=== PATIENT | male | born 1975 | race Caucasian/White ===

== ENCOUNTER 2021-02-27 08:34 | Outpatient (REF) | payer OTHER, SELFPAY ==
[2021-02-27 11:16] LABS: Alanine Aminotransferase 51 U/L (0-40); Albumin Level 4.3 g/dL (3.5-5.0); Alkaline Phosphatase 78 U/L (39-117); Anion Gap 12 (12-20); Aspartate Amino Transferase 23 U/L (5-37); Bilirubin Total 0.7 mg/dL (0.0-1.0); Blood Urea Nitrogen 12 mg/dL (9-16); Calcium 9.5 mg/dL (8.4-10.2); Carbon Dioxide 25 mmol/L (22-29); Chloride 106 mmol/L (96-108); Cholesterol 251 mg/dL; Estimated Glomerular Filt Rate > 60; Glucose Fasting 101 mg/dL (60-99); HDL Cholesterol 54 mg/dL; LDL Cholesterol Calculated 178 mg/dl; Potassium 4.2 mmol/L (3.3-5.1); Sodium 139 mmol/L (135-145); Total Protein 7.6 g/dL (6.5-8.0); Triglycerides 97 mg/dL
[2021-02-27 11:27] LABS: TSH reflex Free T4 0.89 uIU/mL (0.32-4.0)
== END 2021-02-27 08:35 | disposition home or self-care (01) ==
LOC: HO.WFDLDS 08:34
PROVIDERS: Visit Provider Family Medicine
DX: Z00.00 Encounter for general adult medical examination without abnormal findings (principal)
CPT/HCPCS: 36415; 80053; 80061; 84443

== ENCOUNTER 2021-04-28 14:19 | Outpatient (REF) | payer OTHER, SELFPAY ==
--- NOTE | ~2021-04-28 | US_ITS ---
EXAMINATION: US VENOUS WITH DOPPLER UPPER EXTREMITY, RIGHT CLINICAL INFORMATION: Pain COMPARISON: None TECHNIQUE: Ultrasound of the upper extremity is performed using compression sonography and color and pulse Doppler flow with assessment of augmentation of flow. There is also imaging and Doppler assessment of the jugular and subclavian veins. Spectral analysis with color-flow imaging is performed. FINDINGS: The right internal jugular, subclavian, axillary, basilic, brachial and cephalic veins are patent. The radial and ulnar veins in the forearm are patent. Just superior to the antecubital fossa is a 0.6 x 0.3 x 0.7 cm hypoechoic likely complex fluid collection. Ultrasound appearance is nonspecific. Possible hematoma or a small abscess should be considered. US/US venous duplex UE RT IMPRESSION: No DVT demonstrated in the right upper extremity. Small nonspecific complex fluid collection just superior to the cubital fossa measuring 6 x 3 x 7 mm.
== END 2021-04-28 14:20 | disposition home or self-care (01) ==
LOC: HO.US 14:19
PROVIDERS: PCP Family Medicine; Visit Provider Family Medicine
DX: R60.0 Localized edema (principal); M79.89 Other specified soft tissue disorders; I80.8 Phlebitis and thrombophlebitis of other sites
CPT/HCPCS: 93971

== ENCOUNTER 2021-10-14 08:59 | Outpatient (REF) | payer OTHER, SELFPAY ==
[2021-10-14 12:26] LABS: Alanine Aminotransferase 63 U/L (0-40); Alkaline Phosphatase 66 U/L (39-117); Anion Gap 11 (12-20); Aspartate Amino Transferase 28 U/L (5-37); Bilirubin Total 0.8 mg/dL (0.0-1.0); Blood Urea Nitrogen 10 mg/dL (9-16); Calcium 9.3 mg/dL (8.4-10.2); Carbon Dioxide 23 mmol/L (22-29); Chloride 108 mmol/L (96-108); Cholesterol 268 mg/dL; Estimated Glomerular Filt Rate > 60; Glucose Fasting 108 mg/dL (60-99); HDL Cholesterol 57 mg/dL; LDL Cholesterol Calculated 186 mg/dl; Potassium 4.1 mmol/L (3.3-5.1); Sodium 138 mmol/L (135-145); Triglycerides 129 mg/dL
[2021-10-14 12:41] LABS: Prostate Specific Antigen Scr 1.93 ng/mL (<0.05-4.0)
[2021-10-15 04:36] LABS: ~Hepatitis B Surface Antibody NONREACTIVE (Nonreactive)
[2021-10-15 05:04] LABS: HBsAGNum1 0.18 S/CO (0.00-0.99); Hepatitis B Core Antibody Nonreactive (Nonreactive); Hepatitis B Surface Antigen Negative (Negative); ~HepC Num1 0.09 S/CO (0.00-0.79); ~Hepatitis C Antibody Nonreactive (Nonreactive)
== END 2021-10-14 09:00 | disposition home or self-care (01) ==
LOC: HO.WFDLDS 08:59
PROVIDERS: Visit Provider Family Medicine
DX: R73.01 Impaired fasting glucose (principal); R74.01 Elevation of levels of liver transaminase levels; E78.00 Pure hypercholesterolemia, unspecified; Z11.3 Encounter for screening for infections with a predominantly sexual mode of transmission; Z12.5 Encounter for screening for malignant neoplasm of prostate
CPT/HCPCS: 36415; 80053; 80061; 84153; 86704; 86706; 86803; 87340

== ENCOUNTER 2021-11-27 08:45 | Outpatient (REF) | payer OTHER, SELFPAY ==
--- NOTE | ~2021-11-27 | US_ITS ---
EXAMINATION: US ABDOMEN LIMITED WITH LIVER ELASTOGRAPHY CLINICAL INFORMATION: Elevated LFTs. COMPARISON: None. TECHNIQUE: Real-time imaging of the abdominal viscera. Noninvasive ultrasound liver fibrosis assessment is performed using Dionisio ElastPQ point quantification shear wave elastography (2D-SWE) with a C5-2 MHz transducer. Multiple elastography samples are obtained. FINDINGS: PANCREAS: The visualized pancreatic head and body are normal in appearance. The remainder of the pancreas is obscured from visualization by the overlying bowel gas. LIVER: The liver demonstrates normal size, contour and increased echogenicity. No focal lesion or intrahepatic biliary duct dilatation. The right lobe measures 15.0 cm in length. The left lobe measures 11.9 cm in length. Portal flow is hepatopedal. Shear wave liver elastography median stiffness is 1.5 m/s (reference: normal median stiffness is 1.3 m/s or less). IQR/median stiffness to assess sampling precision is 0.11 (reference: good quality data set is IQR/median stiffness of 0.15 or less). GALLBLADDER: Normal. The gallbladder is physiologically distended without evidence of stones, sludge, polyps, wall thickening or pericholecystic fluid. COMMON BILE DUCT: Normal in caliber measuring 0.3 cm in diameter. RIGHT KIDNEY: Normal. No hydronephrosis. No renal calculi or focal parenchymal lesions. The kidney measures 12.0 cm in maximum dimension. FREE FLUID: None. US/US abdomen novak w elastography IMPRESSION: 1. Mild hepatic steatosis without focal lesion. 2. Liver elastography: Median liver stiffness 1.5 suggestive of cACLD ruled out. REFERENCE: Society of Radiologists in Ultrasound Liver Stiffness Thresholds (2020): LIVER STIFFNESS THRESHOLDS: *Liver Stiffness equal or less than 1.3 m/s: High probability of being normal. *Liver Stiffness less than 1.7 m/s: In the absence of other known clinical signs, rules out compensated advanced chronic liver disease. *Liver Stiffness 1.7-2.1 m/s: Suggestive of compensated advanced chronic liver disease but need further test for confirmation. *Liver Stiffness over 2.1 m/s: Rules in compensated advanced chronic liver disease. *Liver Stiffness over 2.4 m/s: Suggestive of clinically significant portal hypertension. QUALITY OF DATA SET: *IQR/Median value equal or less than 0.15 implies a quality data set. *IQR/Median value over 0.15 implies a poor quality data set. SIGNIFICANT CHANGE FROM PRIOR EXAM: Significant change if liver stiffness measurement is 10% or greater from prior exam. OTHER CONSIDERATIONS: The stage of liver fibrosis may be overestimated in the setting of acute hepatitis, liver inflammation, elevated liver function tests, hepatic vascular congestion, obstructive cholestasis, non-fasting state, and infiltrative diseases such as amyloidosis and lymphoma. In some patients with NAFLD, the liver stiffness thresholds for compensated advanced chronic liver disease may be lower. In causes other than viral hepatitis and NAFLD, liver stiffness thresholds are not well established.
== END 2021-11-27 08:46 | disposition home or self-care (01) ==
LOC: HO.US 08:45
PROVIDERS: PCP Family Medicine; Visit Provider Family Medicine
DX: R74.01 Elevation of levels of liver transaminase levels (principal)
CPT/HCPCS: 76705; 76981

== ENCOUNTER 2021-12-04 08:58 | Outpatient (REF) | payer OTHER, SELFPAY ==
[2021-12-04 10:54] LABS: Estimated Average Glucose 105 mg/dL; Hemoglobin A1c % 5.3 %
== END 2021-12-04 08:59 | disposition home or self-care (01) ==
LOC: HO.WFDLDS 08:58
PROVIDERS: Visit Provider Family Medicine
DX: R73.01 Impaired fasting glucose (principal)
CPT/HCPCS: 36415; 83036

== ENCOUNTER 2023-01-04 08:25 | Outpatient (RCR) | payer OTHER, SELFPAY ==
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
== END 2023-12-02 08:34 | disposition home or self-care (01) ==
LOC: HO.PTWFD 08:25
PROVIDERS: Visit Provider Family Medicine
DX: M25.512 Pain in left shoulder (principal)
CPT/HCPCS: 97110; 97140; 97161; 97535

== ENCOUNTER 2023-04-14 08:56 | Outpatient (REF) | payer OTHER, SELFPAY ==
[2023-04-14 11:11] LABS: MANUAL DIFF FLAG NO
[2023-04-14 11:23] LABS: Basophils Percent Auto 0.8 % (0-2); Eosinophils Absolute Auto 0.2 X10*3/uL (0.0-0.4); Eosinophils Percent Auto 3.4 % (0-4); Hematocrit 48.4 % (42.0-52.0); Imm Gran Abs Auto 0.01 X10*3/uL (0.00-0.03); Imm Gran Pct Auto 0.2 % (0.0-0.4); Lymphocytes Absolute Auto 1.5 X10*3/uL (1.2-4.9); Lymphocytes Percent Auto 30.6 % (20-40); Mean Corpuscular HGB Conc 33.1 g/dl (31.0-36.0); Mean Corpuscular Hemoglobin 30.6 pg (27.0-33.0); Mean Corpuscular Volume 92.5 fL (80.0-98.0); Mean Platelet Volume 10.3 fL (9.4-12.4); Monocytes Absolute Auto 0.6 X10*3/uL (0.1-1.2); Monocytes Percent Auto 11.2 % (2-11); Neutrophils Absolute Auto 2.7 x10*3/uL (2.0-8.3); Neutrophils Percent Auto 53.8 % (45-73); Platelet Count 305 X10*3/uL (160-400); Red Blood Count 5.23 X10*6/uL (4.60-5.80); Red Cell Distribution Width 12.3 % (11.0-16.0); White Blood Count 4.9 X10*3/uL (4.8-10.8)
[2023-04-14 11:23] LABS: Appearance Urine Clear; Color Urine Yellow; Glucose Urine UA Negative (Negative); Leukocyte Esterase Urine Negative (Negative); Nitrite Urine Negative (Negative); Urine Blood Negative (Negative); Urine Ketones Negative (Negative); Urine Protein Negative (Neg-Trace)
[2023-04-14 12:03] LABS: Alanine Aminotransferase 44 U/L (0-40); Albumin Level 4.3 g/dL (3.5-5.0); Alkaline Phosphatase 84 U/L (39-117); Anion Gap 12 (12-20); Aspartate Amino Transferase 22 U/L (5-37); Bilirubin Total 0.7 mg/dL (0.0-1.0); Blood Urea Nitrogen 14 mg/dL (9-16); Calcium 9.6 mg/dL (8.4-10.2); Carbon Dioxide 23 mmol/L (22-29); Chloride 109 mmol/L (96-108); Cholesterol 224 mg/dL; Estimated Glomerular Filt Rate > 60; Glucose Fasting 100 mg/dL (60-99); HDL Cholesterol 58 mg/dL; LDL Cholesterol Calculated 146 mg/dl; Potassium 4.3 mmol/L (3.3-5.1); Prostate Specific Antigen Scr 2.86 ng/mL (<0.05-4.0); Sodium 140 mmol/L (135-145); TSH reflex Free T4 0.88 uIU/mL (0.32-4.0); Total Protein 7.2 g/dL (6.5-8.0); Triglycerides 101 mg/dL
[2023-04-14 12:06] LABS: Creatinine Urine 139.97 mg/dL
== END 2023-04-14 08:57 | disposition home or self-care (01) ==
LOC: HO.WFDLDS 08:56
PROVIDERS: Visit Provider Family Medicine
DX: Z00.00 Encounter for general adult medical examination without abnormal findings (principal); I10 Essential (primary) hypertension; Z12.5 Encounter for screening for malignant neoplasm of prostate
CPT/HCPCS: 36415; 80053; 80061; 81003; 82043; 84153; 84443; 85025

== ENCOUNTER 2023-04-23 08:41 | Outpatient (REF) | payer OTHER, SELFPAY ==
[2023-04-23 14:57] LABS: Adenovirus F 40/41 Not Detected (Not Detect.); Astrovirus Not Detected (Not Detect.); Campylobacter Not Detected (Not Detect.); Cryptosporidium Not Detected (Not Detect.); Cyclospora cayetanensis Not Detected (Not Detect.); E. coli EAEC Not Detected (Not Detect.); E. coli EPEC Not Detected (Not Detect.); E. coli ETEC Not Detected (Not Detect.); E. coli STEC Not Detected (Not Detect.); Entamoeba histolytica Not Detected (Not Detect.); Giardia lamblia Not Detected (Not Detect.); Norovirus GI/GII Not Detected (Not Detect.); Plesiomonas shigelloides Not Detected (Not Detect.); Rotavirus A Not Detected (Not Detect.); Salmonella Not Detected (Not Detect.); Sapovirus Not Detected (Not Detect.); Shigella sp./EIEC Not Detected (Not Detect.); Vibrio Not Detected (Not Detect.); Vibrio Cholerae Not Detected (Not Detect.); Yersinia enterocolitica Not Detected (Not Detect.)
== END 2023-04-23 08:42 | disposition home or self-care (01) ==
LOC: HO.WFDLNP 08:41
PROVIDERS: Visit Provider Family Medicine
DX: R19.7 Diarrhea, unspecified (principal); R63.4 Abnormal weight loss
CPT/HCPCS: 87177; 87209; 87507

== ENCOUNTER 2023-06-11 13:58 | Outpatient (AMB) | payer OTHER, SELFPAY ==
[2023-06-11 14:33] VITALS: BP 122/74; PULSE 68; O2SAT 98; BMI 26.4
--- NOTE | 2023-06-11 14:33 | A.OFFPC_ITS ---
Vital Signs 06/11/23 14:33 Height 5 ft 9 in Weight 178 lb 8 oz BMI 26.4 BP 122/74 Blood Pressure Location Lt brachial Position Sitting Pulse 68 Pulse Source Pulse Oximeter Pulse Oximetry (%) 98 Intake Visit Reasons: CPE with f/u labs and health maintenance Intake Note: pt is here for cpe, with labs Central Supply Nurse Required: No Accompanied by: Self / Same As Patient Allergies seasonal Allergy (Mild, Uncoded 06/11/23 14:35) watery eyes, cough, stuffy, post-nasal drip Tobacco use date assessed: 12/28/22 Dental Screening Dental Screen Date: 06/11/23 Did you have a dental visit in the last 12 months?: Yes Did you have a dental problem in the last 6 months where you did not have access to dental care?: No Was dental information given to patient?: Patient has dentist HPI CPE with f/u labs and health maintenance HPI Details 48 y/o male presents for a CPE with f/u labs and health maintenance. Labs were drawn 04/14/23. Reviewed labs with pt. Elevated fasting glucose. Last A1c 12/04/21 was 5.3%. Elevated ALT of 44. Triglycerides 101. TC 224. LDL 146. HDL 58. PSA 2.86 ng/mL. Pt reports a strong family hx of prostate cancer. He reports he had improved his diet, cutting back on the sugars and soda. 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 1. Little interest or pleasure in doing things: not at all 2. Feeling down, depressed, or hopeless: not at all 3. Trouble falling or staying asleep, or sleeping too much: not at all 4. Feeling tired or having little energy: not at all 5. Poor appetite or overeating: not at all 6. Feeling bad about yourself - or that you are a failure or have let yourself or your family down: not at all 7. Trouble concentrating on things, such as reading the newspaper or watching television: not at all 8. Moving or speaking so slowly that other people could have noticed. Or the opposite - being so fidgety or restless that you have been moving around a lot more than usual: not at all 9. Thoughts that you would be better off or of hurting yourself in some way: not at all Total score: 0 Depression Screening Interpretation: Negative 36770 - PHQ-9 Billing: Yes Source: Developed by Drs. Hakeem Lerma, Juanita Clifford, Bill Foreman and colleagues, with an educational [place] from [employer]. Thrive Questionnaire Date Thrive assessed: 04/28/21 AUDIT C Alcohol Use Questionnaire (AUDIT-C) 1. How often do you have a drink containing alcohol?: 2-3 times a week 2. How many drinks containing alcohol do you have on a typical day when you are drinking?: 1 or 2 3. How often do you have six or more drinks on one occasion?: Never Total Score: 3 PAU-7 AMB Questionnaire PAU-7 Date PAU - 7 assessed: 06/11/23 Feeling nervous, anxious, or on edge: 0 = Not at all Not being able to stop or control worryin = Not at all Worrying too much about different things: 0 = Not at all Trouble relaxin = Not at all Being so restless that it is hard to sit still: 0 = Not at all Becoming easily annoyed or irritable: 0 = Not at all Feeling afraid as if something awful might happen: 0 = Not at all Total PAU-7 score (0-4 normal; 5-9 mild; 10-14 moderate; 15-21 severe): 0 Source: Developed by Drs. Hakeem Lerma, Juanita Clifford, Bill Foreman and colleagues, with an educational [place] from [employer]. PAU-7 Assessment Billing PAU-7 Assessment Tool: PAU-7 Assessment 41915 Review of Systems Const Denies chills, Denies fatigue, Denies fever(s), Denies headache(s) and Denies weakness Eyes Denies change in vision ENT Denies dizziness, Denies headache(s), Denies hearing loss, Denies nasal congestion, Denies sinus pain, Denies sinus pressure and Denies sore throat Card Denies chest pain, Denies lightheadedness, Denies dyspnea and Denies other (palpitations) Resp Denies cough, Denies dyspnea and Denies wheezing GI Denies abdominal pain, Denies melena, Denies hematochezia, Denies change in bowel habits, Denies dyspepsia and Denies nausea Denies hematuria and Denies dysuria Musc Denies abnormal gait, Reports back pain, Denies myalgias, Denies arthralgias, Denies numbness and Denies tingling Skin/Breast Denies rash, Denies unusual bruising and Denies wounds Neuro Denies abnormal gait, Denies dizziness, Denies headache(s), Denies memory loss, Denies numbness, Denies Sensory deficit (Neuro), Denies tingling and Denies weakness Psych Denies anxiety, Denies depression and Denies memory loss Endo Denies cold intolerance, Denies fatigue, Denies heat intolerance, Denies polydipsia and Denies polyuria Mark/Lymph Denies easy bleeding and Denies easy bruising Aller/Immun Denies wheezing Physical exam (Primary Care) Vital Signs: Last Vital Signs Pulse 68 06/11/23 14:33 BP 122/74 06/11/23 14:33 Pulse Ox 98 06/11/23 14:33 BMI result Body Mass Index 26.4 Tobacco/Smoking Status: Tobacco use Status Tobacco use date assessed 12/28/22 06/11/23 14:36 Patient Tobacco Use Status Never used Tobacco 06/11/23 14:36 e-Cigarette/Vaping Use Never Used 06/11/23 14:36 PHQ-9: PHQ-9 Score PHQ-9: Total score 0 06/11/23 15:12 Depression Screening Interpretation: Negative Thrive Assessment: Date of Thrive Assessment Date Thrive assessed 04/28/21 06/11/23 14:36 Const General: no acute distress, well developed, alert and awake Nutritional Appearance: well nourished Orientation/consciousness: patient oriented x3 HENMT Head: Yes normocephalic and Yes atraumatic Ears: hearing grossly normal bilaterally and TM's normal bilaterally General nose exam: Normal external nose present and Normal nares present Mouth: Normal oral and palatal mucosa present and moist mucous membranes Teeth and gingiva: dentition normal Throat: Yes posterior oropharynx normal Eyes General: appearance normal, both eyes and all related structures Pupils: Equal, round and reactive pupils present and Pupil accommodation reflex normal EOM: EOMs intact bilaterally Neck Neck: Yes normal visual inspection, Yes no lymphadenopathy and Yes trachea midline Thyroid: Thyroid normal Carotids: no bruits Lymphatic: no lymphadenopathy noted Chest Chest palpation & inspection: normal inspection of the chest Resp Effort & Inspection: normal respiratory effort Auscultation: clear to auscultation bilaterally Cardio Rate: regular rate Rhythm: regular rhythm Heart sounds: S1 normal heart sound present, S2 normal heart sound present, no gallops, no murmurs and no rubs Bruits: no abdominal aortic bruits and no carotid bruits GI Palpation (GI): No Abdominal aortic bruit present, Soft to palpation, nontender, No hepatosplenomegaly present and No Rebound tenderness present Auscultation: normal bowel sounds Rectal Exam - Male: Yes prostate abnormal (Enlarged but homogeneously smooth and normal consistency) General: Yes no CVA tenderness Back/Spine/Pelvis Back: no CVA tenderness Cervical Spine: cervical ROM normal and No Cervical spine tenderness Thoracic/Lumbar Spine: thoraco-lumbar ROM normal, No pain with thoraco-lumbar ROM, No thoracic spinal tenderness and No lumbar spinal tenderness Skin Lesions: no lesions Rashes: no rashes Trauma: no lacerations or abrasions Wounds: no wounds Nails: normal Neuro General: patient oriented x3 Cranial nerves: Yes Equal, round and reactive pupils present Cognition (Neuro): normal cognition Gait exam (Neuro): Normal gait present Motor exam (neuro): 5/5 motor strength present throughout Sensory Exam: No Sensory deficit (Neuro) Deep tendon reflexes (DTR's): Right patellar reflex intensity grade: 2+ and Left patellar reflex intensity grade: 2+ Extrem General: Yes normal to inspection and No edema Psych Appearance: grossly normal Affect: normal affect Attitude: cooperative Thought process: Normal thought process present Assessment and Plan Assessment & Plan (1) Annual physical exam: Code(s): Z00.00 - Encounter for general adult medical examination without abnormal findings Plan: 48-year-old male presents for complete physical exam Encouraged healthy diet with active lifestyle and plenty of exercise (2) Elevated ALT measurement: Code(s): R74.01 - Elevation of levels of liver transaminase levels Plan: Improving with dietary changes and weight changes (3) Hypercholesterolemia: Code(s): E78.00 - Pure hypercholesterolemia, unspecified Plan: LDL cholesterol is improving. Encouraged ongoing lifestyle changes (4) Elevated fasting blood sugar: Code(s): R73.01 - Impaired fasting glucose Plan: Very mildly elevated fasting blood sugars and which follow-up on this at a subsequent visit (5) Back pain: Code(s): M54.9 - Dorsalgia, unspecified Plan: Midback pain. Left thoracic paraspinal muscles appear strained Referred for physical therapy (6) Screening for colon cancer: Code(s): Z12.11 - Encounter for screening for malignant neoplasm of colon Plan: Referred to Gastroenterology (7) Screening for prostate cancer: Code(s): Z12.5 - Encounter for screening for malignant neoplasm of prostate Plan: PSA still within normal limits but climbed significantly from prior check. Patient has a strong family history of prostate cancer. PASQUALE today showed enlarged prostate but was normal consistency. Also, he does have some symptoms as he has some frequent urination/hesitancy. Starting Flomax and referred him to Urology (8) Weight loss: Code(s): R63.4 - Abnormal weight loss Plan: Weight has been fluctuating Will follow (9) Family history of prostate cancer: Code(s): Z80.42 - Family history of malignant neoplasm of prostate Plan: As above, referred to Urology (10) Enlarged prostate: Code(s): N40.0 - Benign prostatic hyperplasia without lower urinary tract symptoms Plan: As above Orders: Orders PT Evaluation and Treatment Today M54.9 - Dorsalgia, unspecified Referrals Urology Referral Z12.5 - Encounter for screening for malignant neoplasm of prostate Gastroenterology Referral Z12.11 - Encounter for screening for malignant neoplasm of colon Coding Level of Care Code Est Pt Level 3 (94719) Est Pt Prev Care 40-64y(77805) Diagnoses Annual physical exam Z00.00 Elevated ALT measurement R74.01 Hypercholesterolemia E78.00 Elevated fasting blood sugar R73.01 Back pain M54.9 Screening for colon cancer Z12.11 Screening for prostate cancer Z12.5 Weight loss R63.4 Family history of prostate cancer Z80.42 Enlarged prostate N40.0 Additional Codes PAU-7 Assessment Billing - PAU-7 Assessment Tool: PAU-7 Assessment 16977 ([id number])
== END 2023-06-11 15:43 | disposition home or self-care (01) ==
PROVIDERS: PCP Family Medicine; Visit Provider Family Medicine
DX: Z00.00 Encounter for general adult medical examination without abnormal findings (principal); R74.01 Elevation of levels of liver transaminase levels; E78.00 Pure hypercholesterolemia, unspecified; Z80.42 Family history of malignant neoplasm of prostate; R73.01 Impaired fasting glucose; M54.9 Dorsalgia, unspecified; R63.4 Abnormal weight loss; N40.0 Benign prostatic hyperplasia without lower urinary tract symptoms
CPT/HCPCS: 99396

== ENCOUNTER 2023-07-22 15:20 | Outpatient (AMB) | payer OTHER, SELFPAY ==
--- NOTE | 2023-07-22 15:19 | A.OFFVIS_ITS ---
Intake Intake Visit Reasons: screening for malignant neoplasm of prostate Intake Note: New Patient presents for initial visit Enlarged Prostate/Family Hx Prostate Cancer Urology Medications: Tamsulosin Blood Thinner: none (Last PSA 04/30 - 2.86) PVR: 0ml Oracle Adf Developer Required: No Accompanied by: Self / Same As Patient Allergies seasonal Allergy (Mild, Uncoded 07/25/23 13:09) watery eyes, cough, stuffy, post-nasal drip Medication List - Last Reconciled 07/25/23 by RAFAEL HamiltonP- fluticasone propionate 50 mcg/actuation 1 spray intranasal DAILY loratadine (Claritin) 10 mg PO DAILY tamsulosin (Flomax) 0.4 mg PO BEDTIME 30 days HPI HPI Comments History of Present Illness Details Bello is a very pleasant 48-year-old male patient of Dr. Anne. He presents to the office today as a new patient for elevated PSA. In discussion with the patient today reports to be doing and feeling well. He reports having a longstanding history of prostate cancer as well as BPH in his family. He reports his paternal grandfather and one of his cousins has had prostate cancer. He reports his father has since however his mother has to ld him his dad had issues with enlarged prostate. When asked he does report ongoing episodes of nocturia and urinary frequency. However, he denies denies incontinence, hematuria, dysuria, foul smelling urine, changes to urinary stream, flank pain, fever, and or chills. He reports PCP to have started Flomax. He reports having taking it for approximately 1 week however did not notice any true benefit thus has stopped. Discussed and educated on the importance of taking medications as prescribed. Discussed allowing time for medication to work verses trial of other bladder/prostate medication. In office urinalysis results reviewed with the patient today. PVR 0 mL. In review of patient's chart PSAs are as follows: 10/28--1.9 04/30--2.9 Discussed at length potential causes for elevated PSA. Discussed redraw of PSA with no sex the night before, no caffeine morning of, and no heavy lifting 1-2 days prior. Discussed obtaining retroperitoneal ultrasound for further assessment evaluation. PAQSUALE offered however reports PCP stated enlarged prostate and no nodules or abnormalities palpated per patient. [facility] Medical History (Reviewed 07/25/23 @ 13:24 by [facility] Allergies Acute bacterial tonsillitis Surgical History History of tonsillectomy [place] teeth removed Family History Father Heart attack Mother Afib Prediabetes Sister Hypertension Social History Housing: House Alcohol intake: current Alcohol intake frequency: a few times a week Alcohol type: beer Patient Tobacco Use Status: Never used Tobacco e-Cigarette/Vaping Use: Never Used Second Hand Smoke Exposure: Yes service: No Current occupational status: employed 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 Current occupational exposures/hazards: Yes Cognitive needs: No Hearing needs: No Vision needs: No Review of Systems Const All systems reviewed & are unremarkable except as noted in HPI and below Reports as per HPI Eyes Reports no additional complaints ENT Reports no additional complaints Card Reports no additional complaints Resp Reports no additional complaints GI Reports no additional complaints Reports as per HPI Musc Reports no additional complaints Neuro Reports no additional complaints Psych Reports no additional complaints Endo Reports no additional complaints Mark/Lymph Reports no additional complaints Aller/Immun Reports no additional complaints Physical Exam Const General: cooperative, healthy appearing, comfortable, no acute distress, well developed, alert and awake Nutritional Appearance: average body habitus Orientation/consciousness: patient oriented x3 Limitations: no limitations HEENT Head: Yes normal to inspection, Yes normocephalic and Yes atraumatic Ears: hearing grossly normal bilaterally Eyes General: appearance normal, both eyes and all related structures Neck Neck: Yes normal visual inspection and Yes trachea midline Chest Chest palpation & inspection: normal inspection of the chest Resp Effort & Inspection: normal respiratory effort and able to speak in complete sentences Cardio Rate: regular rate GI Inspection: Yes normal to inspection General: Yes no CVA tenderness Back/Spine/Pelvis Back: no CVA tenderness Skin General skin exam: no rashes or lesions noted Neuro General: patient oriented x3 Extrem General: Yes normal to inspection Psych Appearance: grossly normal and well kempt Mental Status: mental status grossly normal Speech and movement: Normal speech and movement present and Clear speech present Affect: normal affect Attitude: cooperative Thought process: Normal thought process present Thought content: Normal thought content present Insight: Good insight present (Psych) Judgement: Good judgement present (Psych) Results AMB Urinalysis, Automated UA Leukoctes 0 Martha/uL Last Edit by [email or web address] on 07/22/23 15:36 UA Nitrite Negative Last Edit by [email or web address] AmberPointkim on 07/22/23 15:36 UA Urobilinogen 0.2 mg/dL Last Edit by [email or web address] AmberPointkim on 07/22/23 15:36 UA Protein 15 mg/dL Last Edit by [email or web address] on 07/22/23 15:36 UA pH 7.0 Last Edit by [email or web address] on 07/22/23 15:36 UA Blood 0 Benito/uL Last Edit by Rated People on 07/22/23 15:36 UA Specific [place] 1.015 Last Edit by [email or web address] on 07/22/23 15:36 UA Ketone Negative Last Edit by [email or web address] on 07/22/23 15:36 UA Bilirubin 0 mg/dL Last Edit by [email or web address] on 07/22/23 15:36 UA Glucose 0 mg/dL Last Edit by [email or web address] on 07/22/23 15:36 Results Reviewed Results Reviewed: Laboratory Last Values Urine pH (Auto) 7.0 07/22/23 15:21 Specific [place] (Auto) 1.015 07/22/23 15:21 Urine Protein (Auto) 15 mg/dL 07/22/23 15:21 Glucose (UA)(Auto) 0 mg/dL 07/22/23 15:21 Urine Ketones (Auto) Negative 07/22/23 15:21 Urine Blood (Auto) 0 Benito/uL 07/22/23 15:21 Urine Nitrite (Auto) Negative 07/22/23 15:21 Urine Bilirubin (Auto) 0 mg/dL 07/22/23 15:21 Urine Urobilinogen (Auto) 0.2 mg/dL 07/22/23 15:21 Leukocyte Esterase (Auto) 0 Martha/uL 07/22/23 15:21 Assessment & Plan Assessment & Plan (1) Enlarged prostate: Code(s): N40.0 - Benign prostatic hyperplasia without lower urinary tract symptoms (2) Family history of prostate cancer: Code(s): Z80.42 - Family history of malignant neoplasm of prostate (3) Elevated PSA: Code(s): R97.20 - Elevated prostate specific antigen [PSA] Plan In office urinalysis results reviewed with the patient today; as noted above. PVR 0 mL. Restart Flomax 0.4 mg as discussed and prescribed. Discussed at length potential causes for elevated PSA Discussed redraw of PSA with no sex the night before, no caffeine morning of, and no heavy lifting 1-2 days prior to lab draw. Will obtain retroperitoneal ultrasound for further assessment evaluation. Discussed possible near future prostate biopsy in the setting of elevated PSA. Discussed, educated, encouraged to continue drinking plenty of water daily. Discussed limiting fluids 3-4 hours prior to bed to assist with decreasing episodes of nocturia Follow-up in 6 weeks with lab and imaging to be completed prior; or sooner with any issues, concerns, and or questions. Orders: Orders AMB Urinalysis Automated 07/22/23 Z13.9 - Encounter for screening, unspecified PSA,Total (Free>4and<10) 07/22/23 N40.0 - Benign prostatic hyperplasia without lower urinary tract symptoms US retroperitoneal comp 07/22/23 N40.0 - Benign prostatic hyperplasia without lower urinary tract symptoms Patient Instructions: The patient had an opportunity to ask questions regarding the treatment plan. All questions were answered. Physical exam, labs, and imaging were discussed and reviewed in detail. As well as risks, benefits, and discussion of treatment choices. No major barriers to understanding were identified. The patient expressed understanding and agreement with the above treatment plan. The patient was made aware they should contact our office by phone for worsening of their current condition, the appearance of new symptoms, or with any questions or concerns. Compliance is encouraged with any medications and follow up testing that is ordered. It is a privilege to be allowed the opportunity to participate in? your urological care.? Again, if you have any questions or concerns If you have any questions or concerns please do not hesitate to contact me. The office is [phone]. This note is constructed using voice recognition software. While every effort has been made to ensure accuracy braker passenger train errors may have been included. Yours sincerely, FABY Hamilton Coding Level of Care Code New Pt Level 3 (17922) Diagnoses Enlarged prostate N40.0 Family history of prostate cancer Z80.42 Elevated PSA R97.20
== END 2023-07-22 15:54 | disposition home or self-care (01) ==
LOC: HO.HUSH 15:20
PROVIDERS: PCP Family Medicine; Referring Provider Family Medicine; Visit Provider Nurse Practitioner Family
DX: N40.0 Benign prostatic hyperplasia without lower urinary tract symptoms (principal); Z80.42 Family history of malignant neoplasm of prostate; R97.20 Elevated prostate specific antigen [PSA]
CPT/HCPCS: 99203

== ENCOUNTER → 2023-07-22 15:20 | Outpatient (BNVA) | payer OTHER, SELFPAY | PROVIDERS: PCP Family Medicine; Referring Provider Family Medicine; Visit Provider Nurse Practitioner Family | DX: R97.20 Elevated prostate specific antigen [PSA] (principal); N40.0 Benign prostatic hyperplasia without lower urinary tract symptoms; Z80.42 Family history of malignant neoplasm of prostate | CPT/HCPCS: 81003 ==

== ENCOUNTER 2023-08-02 07:27 | Outpatient (AMB) | payer OTHER, SELFPAY ==
--- NOTE | 2023-08-02 07:46 | MHC.OFFVIS ---
Intake Vital Signs 08/02/23 07:47 Height 5 ft 9 in Weight 172 lb BMI 25.4 BP 116/73 Blood Pressure Location Lt brachial Position Sitting Pulse 65 Intake Visit Reasons: Clonoscopy screening Intake Note: Patient new consult for Pre Colonoscopy screening. Patient denies any GI issues. Housekeeping Supervisor Required: No Accompanied by: Self / Same As Patient Allergies seasonal Allergy (Mild, Uncoded 07/25/23 13:09) watery eyes, cough, stuffy, post-nasal drip HPI HPI Comments History of Present Illness Details A 48-year-old male family hx CRC- (2 p- cousins < 50 ) referred for index screening colonoscopy He says he does have anxiety he had lost quite a bit of weight he is very nervous he has had a feeling in back/lung-no SOB, cough, heartburn- nausea or vomiting Appetite is ok- Bowels are normal No respiratory or cardiac issues- Seeing urology for enlarged prostate. 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 Current occupational exposures/hazards: Yes Cognitive needs: No Hearing needs: No Vision needs: No Review of Systems Const All systems reviewed & are unremarkable except as noted in HPI and below Reports weight loss ENT Denies odynophagia Card Denies chest pain and Denies dyspnea Resp Denies dyspnea GI Denies abdominal pain, Denies nausea, Denies odynophagia and Denies vomiting Psych Reports anxiety Physical Exam Vital Signs: Last Vital Signs Pulse 65 08/02/23 07:47 BP 116/73 08/02/23 07:47 BMI result Body Mass Index 25.4 Const General: cooperative, healthy appearing, comfortable and no acute distress Orientation/consciousness: patient oriented x3 Limitations: no limitations Eyes Sclerae: sclerae normal Resp Effort & Inspection: normal respiratory effort and able to speak in complete sentences Auscultation: clear to auscultation bilaterally, no rales, no rhonchi and no wheezes Cardio Rate: regular rate Rhythm: regular rhythm Heart sounds: S1 normal heart sound present and S2 normal heart sound present GI Palpation (GI): Soft to palpation and nontender Auscultation: normal bowel sounds Skin General skin exam: no rashes or lesions noted Neuro General: patient oriented x3 Extrem General: Yes full ROM Psych Appearance: grossly normal Mental Status: mental status grossly normal Speech and movement: Normal speech and movement present Affect: normal affect Attitude: cooperative Thought process: Normal thought process present Thought content: Normal thought content present Insight: Good insight present (Psych) Judgement: Good judgement present (Psych) Assessment & Plan Assessment & Plan (1) Screening for colon cancer: Comment: very pleasant- Code(s): Z12.11 - Encounter for screening for malignant neoplasm of colon Plan: Index screening colonoscopy MiraLax Gatorade split prep Discussed procedure,rare risks, need for escorted due to anesthesia (2) Family history of colon cancer: Comment: 2 pat cousins < 50- Code(s): Z80.0 - Family history of malignant neoplasm of digestive organs (3) Weight loss: Comment: C/o chronic-mid back/ worries lung - no SOB- will get CXR- reassure if neg Code(s): R63.4 - Abnormal weight loss Plan: CXR- if neg reassuring Plan Index screening colonoscopy MiraLax Gatorade split prep Orders: Orders XR chest 2V Today R63.4 - Abnormal weight loss Colonoscopy - GI Use Only Today R63.4 - Abnormal weight loss, Z12.11 - Encounter for screening for malignant neoplasm of colon, Z80.0 - Family history of malignant neoplasm of digestive organs Medications: New polyethylene glycol 3350 (Miralax) Take as directed by mouth the day before your procedure. 238 grams PO ONCE 1 day PRN 238 grams 0RF laxative effect bisacodyl (Dulcolax (bisacodyl)) Take 4 tablets by mouth at 12:00pm the day before your procedure. 20 mg (4 x 5 mg) PO ONCE 1 day 4 tabs 0RF colonoscopy prep Z12.11 - Encounter for screening for malignant neoplasm of colon Patient Instructions: Index screening colonoscopy MiraLax Gatorade split prep Coding Level of Care Code New Pt Level 3 (93670) Diagnoses Screening for colon cancer Z12.11 Family history of colon cancer Z80.0 Weight loss R63.4 Time Spent (min) 30
[2023-08-02 07:47] VITALS: BP 116/73; PULSE 65; BMI 25.4
== END 2023-08-02 08:55 | disposition home or self-care (01) ==
PROVIDERS: PCP Family Medicine; Visit Provider Physician Assistant
DX: Z01.818 Encounter for other preprocedural examination (principal); R63.4 Abnormal weight loss; Z80.0 Family history of malignant neoplasm of digestive organs; Z12.11 Encounter for screening for malignant neoplasm of colon
CPT/HCPCS: S0285

== ENCOUNTER → 2023-08-02 07:27 | Outpatient (BNVA) | payer OTHER, SELFPAY | PROVIDERS: PCP Family Medicine; Visit Provider Physician Assistant ==

== ENCOUNTER 2023-09-01 14:57 | Outpatient (REF) | payer OTHER, SELFPAY ==
--- NOTE | ~2023-09-01 | US_ITS ---
EXAMINATION: US RETROPERITONEAL COMPLETE (RENAL) CLINICAL INFORMATION: Benign prostatic hyperplasia without lower urinary tract symptoms. COMPARISON: US abdomen complete with liver elastography 11/27/2021. TECHNIQUE: Real-time imaging of the kidneys and bladder. FINDINGS: RIGHT KIDNEY: 10.5 x 4.6 x 6.5 cm (SAG x AP x TRV). The kidney is normal in size, contour, and echogenicity. Renal cortical thickness is normal. No calculi or focal parenchymal lesions. No hydronephrosis. LEFT KIDNEY: 11.5 x 5.6 x 5.2 cm (SAG x AP x TRV). The kidney is normal in size, contour, and echogenicity. Renal cortical thickness is normal. No renal calculi or hydronephrosis. A benign 2.0 cm Bosniak class I renal cyst is noted in the upper pole which requires no additional imaging or follow up. No solid renal masses are seen. BLADDER: Well distended and normal. Bilateral ureteral jets are demonstrated. Prevoid bladder volume is 132 mL. Postvoid bladder volume is 7.7 mL. ADDITIONAL FINDINGS: The prostate is enlarged at 39 mL. US/US retroperitoneal comp IMPRESSION: Mild benign prostatic hyperplasia with 39 mL prostate.
== END 2023-09-01 14:58 | disposition home or self-care (01) ==
LOC: HO.US 14:57
PROVIDERS: PCP Family Medicine; Visit Provider Nurse Practitioner Family
DX: N40.0 Benign prostatic hyperplasia without lower urinary tract symptoms (principal)
CPT/HCPCS: 76770

== ENCOUNTER 2023-09-14 07:36 | Outpatient (REF) | payer OTHER, SELFPAY ==
[2023-09-14 12:08] LABS: PSA,Total (Free>4and<10) 1.51 ng/mL (0.00-4.00)
== END 2023-09-14 07:37 | disposition home or self-care (01) ==
LOC: HO.WFDLDS 07:36
PROVIDERS: Visit Provider Nurse Practitioner Family
DX: Z12.5 Encounter for screening for malignant neoplasm of prostate (principal); N40.0 Benign prostatic hyperplasia without lower urinary tract symptoms
CPT/HCPCS: 36415; 84153

== ENCOUNTER 2023-09-21 08:24 | Outpatient (AMB) | payer OTHER, SELFPAY ==
--- NOTE | 2023-09-21 08:25 | A.OFFVIS_ITS ---
Intake Intake Visit Reasons: 2m/US/PSA(set) Intake Note: Patient presents for follow up visit Enlarged Prostate/Family Hx Prostate Cancer/ultrasound/lab (imaging 09/01/23) (psa 1.51) Urology Medications: Tamsulosin (discontinued) Blood Thinner: none Obstetrics Specialist Required: No Accompanied by: Self / Same As Patient Allergies seasonal Allergy (Mild, Uncoded 09/21/23 09:44) watery eyes, cough, stuffy, post-nasal drip Medication List - Last Reconciled 09/21/23 by KYLAH Hamilton- bisacodyl (Dulcolax (bisacodyl)) 20 mg (4 x 5 mg) PO ONCE 1 day fluticasone propionate 50 mcg/actuation 1 spray intranasal DAILY loratadine (Claritin) 10 mg PO DAILY polyethylene glycol 3350 (Miralax) 238 grams PO ONCE PRN 1 day HPI HPI Comments History of Present Illness Details Bello is a very pleasant 48-year-old male patient of Dr. Anne. He presents to the office today for follow-up. Of note, patient was seen approximately 2 months ago as a new patient for elevated PSA at which time a redraw of the PSA and retroperitoneal ultrasound ordered for further assessment evaluation. These results were reviewed with the patient today. Right kidney with no calculi, lesions, and or hydronephrosis noted. Left kidney with no calculi or hydronephrosis. A benign 2.0 cm Bosniak class I renal cyst is noted in the upper pole which requires no additional imaging or follow up is recommended per radiology report. No solid renal masses are seen. The bladder is well distended and normal. Bilateral ureteral jets are demonstrated. Pre void bladder volume is approximately 130 mL. Postvoid bladder volume is approximately 10 mL. The prostate is enlarged measuring approximately 40 mL. PSAs are as follows 10/28--1.9 04/30--2.9 09/30--1.5 In discussion with the patient today reports to be doing and feeling well. He reports having a longstanding history of prostate cancer as well as BPH in his family. He reports his paternal grandfather and one of his cousins has had prostate cancer. He reports his father has since however his mother has told him his dad had issues with enlarged prostate. When asked he does report ongoing episodes of nocturia and urinary frequency however he reports symptoms very day to day. When asked he denies incontinence, hematuria, dysuria, foul smelling urine, changes to urinary stream, flank pain, fever, and or chills. He reports PCP to have started Flomax. He reports having taking it for approximately 1 week however did not notice any true benefit thus has stopped. Discussed and educated on the importance of taking medications as prescribed. Discussed allowing time for medication to work verses trial of other bladder/prostate medication. In office urinalysis results reviewed with the patient today. He otherwise offers no other issues or concerns at this time. 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 Current occupational exposures/hazards: Yes Cognitive needs: No Hearing needs: No Vision needs: No Review of Systems Const All systems reviewed & are unremarkable except as noted in HPI and below Reports as per HPI Eyes Reports no additional complaints ENT Reports no additional complaints Card Reports no additional complaints Resp Reports no additional complaints GI Reports no additional complaints Reports as per HPI Musc Reports no additional complaints Neuro Reports no additional complaints Psych Reports no additional complaints Endo Reports no additional complaints Mark/Lymph Reports no additional complaints Aller/Immun Reports no additional complaints Physical Exam Const General: cooperative, healthy appearing, comfortable, no acute distress, well developed, alert and awake Nutritional Appearance: average body habitus Orientation/consciousness: patient oriented x3 Limitations: no limitations HEENT Head: Yes normal to inspection, Yes normocephalic and Yes atraumatic Ears: hearing grossly normal bilaterally Eyes General: appearance normal, both eyes and all related structures Neck Neck: Yes normal visual inspection and Yes trachea midline Chest Chest palpation & inspection: normal inspection of the chest Resp Effort & Inspection: normal respiratory effort and able to speak in complete sentences Cardio Rate: regular rate GI Inspection: Yes normal to inspection General: Yes no CVA tenderness Back/Spine/Pelvis Back: no CVA tenderness Skin General skin exam: no rashes or lesions noted Neuro General: patient oriented x3 Extrem General: Yes normal to inspection Psych Appearance: grossly normal and well kempt Mental Status: mental status grossly normal Speech and movement: Normal speech and movement present and Clear speech present Affect: normal affect Attitude: cooperative Thought process: Normal thought process present Thought content: Normal thought content present Insight: Good insight present (Psych) Judgement: Good judgement present (Psych) Results AMB Urinalysis, Automated UA Leukoctes 0 Martha/uL Last Edit by [employer] on 09/21/23 08:55 UA Nitrite Negative Last Edit by [employer] on 09/21/23 08:55 UA Urobilinogen 0.2 mg/dL Last Edit by [employer] on 09/21/23 08:55 UA Protein 15 mg/dL Last Edit by [employer] on 09/21/23 08:55 UA pH 6.0 Last Edit by [employer] on 09/21/23 08:55 UA Blood 0 Benito/uL Last Edit by [employer] on 09/21/23 08:55 UA Specific [place] 1.020 Last Edit by [employer] on 09/21/23 08:55 UA Ketone Negative Last Edit by [employer] on 09/21/23 08:55 UA Bilirubin 0 mg/dL Last Edit by [employer] on 09/21/23 08:55 UA Glucose 0 mg/dL Last Edit by [employer] on 09/21/23 08:55 Results Reviewed Results Reviewed: Laboratory Last Values Urine pH (Auto) 6.0 09/21/23 08:32 Specific [place] (Auto) 1.020 09/21/23 08:32 Urine Protein (Auto) 15 mg/dL 09/21/23 08:32 Glucose (UA)(Auto) 0 mg/dL 09/21/23 08:32 Urine Ketones (Auto) Negative 09/21/23 08:32 Urine Blood (Auto) 0 Benito/uL 09/21/23 08:32 Urine Nitrite (Auto) Negative 09/21/23 08:32 Urine Bilirubin (Auto) 0 mg/dL 09/21/23 08:32 Urine Urobilinogen (Auto) 0.2 mg/dL 09/21/23 08:32 Leukocyte Esterase (Auto) 0 Martha/uL 09/21/23 08:32 Date of Service: 09/01/23 EXAMINATION: US RETROPERITONEAL COMPLETE (RENAL) FINDINGS: RIGHT KIDNEY: 10.5 x 4.6 x 6.5 cm (SAG x AP x TRV). The kidney is normal in size, contour, and echogenicity. Renal cortical thickness is normal. No calculi or focal parenchymal lesions. No hydronephrosis. LEFT KIDNEY: 11.5 x 5.6 x 5.2 cm (SAG x AP x TRV). The kidney is normal in size, contour, and echogenicity. Renal cortical thickness is normal. No renal calculi or hydronephrosis. A benign 2.0 cm Bosniak class I renal cyst is noted in the upper pole which requires no additional imaging or follow up. No solid renal masses are seen. BLADDER: Well distended and normal. Bilateral ureteral jets are demonstrated. Prevoid bladder volume is 132 mL. Postvoid bladder volume is 7.7 mL. ADDITIONAL FINDINGS: The prostate is enlarged at 39 mL. IMPRESSION: Mild benign prostatic hyperplasia with 39 mL prostate. Assessment & Plan Assessment & Plan (1) Elevated PSA: Code(s): R97.20 - Elevated prostate specific antigen [PSA] (2) Renal cyst: Code(s): N28.1 - Cyst of kidney, acquired (3) Enlarged prostate: Code(s): N40.0 - Benign prostatic hyperplasia without lower urinary tract symptoms Plan In office urinalysis results reviewed with the patient today; as noted above. Recent retroperitoneal ultrasound results reviewed with the patient today; as noted above. Discussed renal cysts Recent PSA results reviewed with the patient today; as noted above. Patient currently does not feel lower urinary tract symptoms are bothersome as he reports symptoms very. Discussed bladder triggers/irritants. Discussed, stressed, and encouraged on the importance of drinking plenty of water daily. Will obtain PSA in 4 months. Follow-up in 4 months with lab to be completed prior; or sooner with any issues, concerns, and or questions. Orders: Orders AMB Urinalysis Automated 09/21/23 Z13.9 - Encounter for screening, unspecified PSA,Total (Free>4and<10) 4 Months R97.20 - Elevated prostate specific antigen [PSA] Patient Instructions: The patient had an opportunity to ask questions regarding the treatment plan. All questions were answered. Physical exam, labs, and imaging were discussed and reviewed in detail. As well as risks, benefits, and discussion of treatment choices. No major barriers to understanding were identified. The patient ex pressed understanding and agreement with the above treatment plan. The patient was made aware they should contact our office by phone for worsening of their current condition, the appearance of new symptoms, or with any questions or concerns. Compliance is encouraged with any medications and follow up testing that is ordered. It is a privilege to be allowed the opportunity to participate in? your urological care.? Again, if you have any questions or concerns If you have any questions or concerns please do not hesitate to contact me. The office is [phone]. This note is constructed using voice recognition software. While every effort has been made to ensure accuracy director of player personnel errors may have been included. Yours sincerely, FABY Hamilton Coding Level of Care Code Est Pt Level 3 (44858) Diagnoses Elevated PSA R97.20 Renal cyst N28.1 Enlarged prostate N40.0
== END 2023-09-21 09:38 | disposition home or self-care (01) ==
PROVIDERS: PCP Family Medicine; Visit Provider Nurse Practitioner Family
DX: R97.20 Elevated prostate specific antigen [PSA] (principal); N28.1 Cyst of kidney, acquired; N40.0 Benign prostatic hyperplasia without lower urinary tract symptoms
CPT/HCPCS: 99213

== ENCOUNTER → 2023-09-21 08:24 | Outpatient (BNVA) | payer OTHER, SELFPAY | PROVIDERS: PCP Family Medicine; Visit Provider Nurse Practitioner Family | DX: N28.1 Cyst of kidney, acquired (principal); N40.0 Benign prostatic hyperplasia without lower urinary tract symptoms; R97.20 Elevated prostate specific antigen [PSA]; Z80.42 Family history of malignant neoplasm of prostate | CPT/HCPCS: 81003 ==

== ENCOUNTER 2024-01-31 07:31 | Day surgery (SDC) | payer OTHER, SELFPAY ==
--- NOTE | 2024-01-28 10:52 | HO.ANESPROP2 ---
HPI - Anesthesia Eval Consult details Narrative: 48yo M for Colonoscopy [facility] Active Problems Active Problems: All Active Problems (Updated 09/23/23 @ 00:41 by FABY Hamilton) Renal cyst (Acute) Family history of colon cancer (Acute) Elevated PSA (Acute) Enlarged prostate (Acute) Family history of prostate cancer (Acute) Screening for prostate cancer (Acute) Screening for colon cancer (Acute) Hypercholesterolemia (Acute) Elevated ALT measurement (Acute) Diarrhea (Acute) Weight loss (Acute) Dizziness (Acute) Lipoma (Acute) Subscapular pain (Acute) Back pain (Acute) Left shoulder pain (Acute) Swelling of right upper extremity (Acute) Pure hypercholesterolemia (Acute) Elevated transaminase level (Acute) Elevated fasting blood sugar (Acute) Annual physical exam (Acute) Acute bacterial tonsillitis (Acute) Pharyngitis (Acute) Allergies (Acute) Laboratory examination ordered as part of a routine general medical examination (Acute) Past Medical History Medical History Allergies Acute bacterial tonsillitis Family History Family History Father Heart attack Mother Afib Prediabetes Sister Hypertension Surgical History Surgical History History of tonsillectomy [place] teeth removed Social History Social History Housing: House Alcohol intake: current Alcohol intake frequency: a few times a week Alcohol type: beer Patient Tobacco Use Status: Never used Tobacco e-Cigarette/Vaping Use: Never Used Second Hand Smoke Exposure: Yes service: No Current occupational status: employed 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
--- NOTE | 2024-01-31 07:25 | MHC.SHP ---
Pre-Procedural Eval Section A - 24 Hr Update-Section A only Date of Service: 01/31/24 The patient is an INPATIENT: No The patient has been examined within 24 hours of the surgical procedure. The History & Physical has been completed within 30 days and I have reviewed it.: No Section B - Complete if H&P > 30 days Chief Complaint: Colon cancer screening, family history of colon ca Relevant Family History (Specify if Yes): Yes Relevant Social History: None Present Medications: see Short Stay Collaborative assessment Medical History: Significant History (Allergies Acute bacterial tonsillitis) History of Previous Operations: Relevant previous surgery/procedure and date(s) (History of tonsillectomy [place] teeth removed) Allergies: Allergies Allergy/AdvReac Type Severity Reaction Status Date / Time seasonal Allergy Mild watery Uncoded 09/21/23 09:44 eyes, cough, stuffy, post-nasal drip Review of Systems Sugical H&P ROS: Negative: Constitution, Cardiovascular, Respiratory and Gastrointestinal Exam Surgical H&P Exam: Normal: Heart, Normal: Lungs, Normal: Extremities and Normal: Abdomen Plan Diagnosis/Plan: Unchanged I have reviewed the history and physical and performed a pertinent physical examination on my patient. No changes have occurred unless specified. Time Spent With Patient Time: Total time managing care of this patient today ____ minutes.
[2024-01-31 07:42] VITALS: BMI 26.8
[2024-01-31 07:53] VITALS: BP 118/78; PULSE 68; RESP 16; TEMP 35.8; O2SAT 98
[2024-01-31] MEDS: Lactated Ringers 1,000 ML 100 ML IVCONT (08:03)
--- NOTE | 2024-01-31 08:38 | HO.ANESPROP2 ---
[facility] Active Problems Active Problems: All Active Problems (Updated 09/23/23 @ 00:41 by Nicci Naranjo [facility]) Renal cyst (Acute) Family history of colon cancer (Acute) Elevated PSA (Acute) Enlarged prostate (Acute) Family history of prostate cancer (Acute) Screening for prostate cancer (Acute) Screening for colon cancer (Acute) Hypercholesterolemia (Acute) Elevated ALT measurement (Acute) Diarrhea (Acute) Weight loss (Acute) Dizziness (Acute) Lipoma (Acute) Subscapular pain (Acute) Back pain (Acute) Left shoulder pain (Acute) Swelling of right upper extremity (Acute) Pure hypercholesterolemia (Acute) Elevated transaminase level (Acute) Elevated fasting blood sugar (Acute) Annual physical exam (Acute) Acute bacterial tonsillitis (Acute) Pharyngitis (Acute) Allergies (Acute) Laboratory examination ordered as part of a routine general medical examination (Acute) Past Medical History Medical History Allergies Acute bacterial tonsillitis Functional capacity: independent ambulation Family History Family History Father Heart attack Mother Afib Prediabetes Sister Hypertension Family history of problems with anesthesia: No Surgical History Surgical History History of tonsillectomy [place] teeth removed History of Problems with Anesthesia: No Social History Social History Housing: House Alcohol intake: current Alcohol intake frequency: a few times a week Alcohol type: beer Patient Tobacco Use Status: Never used Tobacco e-Cigarette/Vaping Use: Never Used Second Hand Smoke Exposure: Yes Advance Directives: No Advance Directives Information Provided: Yes service: No Current occupational status: employed 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 Current occupational exposures/hazards: Yes Cognitive needs: No Hearing needs: No Vision needs: No Meds Allergies Allergy/AdvReac Type Severity Reaction Status Date / Time seasonal Allergy Mild watery Uncoded 09/21/23 09:44 eyes, cough, stuffy, post-nasal drip Active Medications: Current Medications Lactated Ringer's (Lr) 1,000 mls @ 100 mls/hr IVCONT .Q10H JAM Last Admin: 01/31/24 08:03 Dose: 100 mls/hr Home Medications Medication Instructions Recorded Confirmed Last Taken Type fluticasone propionate 50 1 spray intranasal DAILY 02/24/21 01/31/24 06:30 History mcg/actuation nasal spray,suspension loratadine 10 mg tablet (Claritin) 10 mg PO DAILY 02/24/21 Unknown History Exam Height,Weight and Vital Signs: Height 5 ft 9 in Weight 82.372 kg Last Vital Signs Temp 96.4 F L 01/31/24 07:53 Pulse 68 01/31/24 07:53 Resp 16 01/31/24 07:53 BP 118/78 01/31/24 07:53 Pulse Ox 98 01/31/24 07:53 O2 Del Method Room Air 01/31/24 07:53 Airway Mallampati Class: II TM Dist: >3cm Neck ROM: Full Heart: RRR Lungs: CTA Assessment and Plan Assessment Anesthesia Assessment: Anesthesia Plan Discussed Final Anesthetic Review Family History of Problems with Anesthesia: No History of Problems with Anesthesia: No ASA Class: II Final Preanesthetic Review: Meds/Allgs Chart Reviewed, Consent Obtained/Reviewed and Anes Risks/Benef Reviewed Patient Risk: Low Procedure Risk: Low Anesthetic Plan Anesthetic Plan: MAC: Disposition: Standard PACU
--- NOTE | 2024-01-31 09:22 | W.PM.OPN ---
Operative Note Operative Note Date of Service: 01/31/24 Narrative: COLONOSCOPY TILL CECUM WITH BIOPSIES AND SNARE POLYPECTOMY Pre-op diagnosis: Colon cancer screening, family history of colon polyps (Dad) and cancer (two paternal cousins). Post-op diagnosis:? Colon polyps, Diverticulosis, hemorrhoids Endoscopist:Dimple Dill MD Anesthesia:?MAC Consent: Indications for the procedure and potential complications of bleeding, perforation, reaction to medications and missed diagnosis were discussed with the patient and informed consent was obtained. Instrument: Olympus CF H 190 L variable stiffness adult colonoscope Monitoring: Vital signs and clinical assessment, intermittent blood pressure monitoring, continuous EKG monitoring, Pulse oximetry and Carbon Dioxide monitoring were done throughout the procedure. Please see anesthesia flowsheet. Colon withdrawl time was 24 minutes. Procedure: The patient was placed in the left lateral decubitis position and pre-procedure medications were administered. After a digital rectal examination of the ano-rectum, the video colonoscope was inserted into the rectum and advanced through the colon to the cecum. The colonoscope was slowly withdrawn in a retrograde panoramic fashion and the colon mucosa was carefully examined including a retroflexed view of the rectum. Findings and interventions are described below. Procedure Difficulty: Colon was long and tortuous and there was some loop formation Findings: Terminal Ileum: Not evaluated Cecum: Normal Ascending Colon: A 10-12 mm sessile polyp in the distal AC/hepatic flexure - removed with a hot snare Transverse Colon: A 3-4 mm sessile polyp - removed with a cold biopsy Descending Colon: Normal Sigmoid Colon: A 5-6 mm diminutive appearing polyp - removed with a cold snare. Moderate diverticulosis Rectum: Normal Ano-rectum: Moderate internal hemorrhoids Colon preparation: Good in the transverse and left colon and fair in the cecum due to a thin layer of adherent stools despite copious irrigation. [place] Bowel Preparation Scale Cecum; 1 Right colon; 2 Transverse colon: 2 Left colon; 3 (0 = Unprepared colon segment with mucosa not seen due to solid stool that cannot be cleared. 1 = Portion of mucosa of the colon segment seen, but other areas of the colon segment not well seen due to staining, residual stool and/or opaque liquid. 2 = Minor amount of residual staining, small fragments of stool and/or opaque liquid, but mucosa of colon segment seen well. 3 = Entire mucosa of colon segment seen well with no residual staining, small fragments of stool or opaque liquid) Impression and Post Procedure Diagnosis: Colonoscopy Findings: Two small and one medium sized polyps were removed Moderate diverticulosis seen in the sigmoid colon Moderate hemorrhoids on retroflexed exam. Prep was good in the transverse and left colon and fair in the cecum due to a thin layer of adherent stools despite copious irrigation. Plan: Pt has a FU appointment on 02/15/24 with Cristiana Lycnh NP Repeat Colonoscopy in 3-5 years if polyps are adenomatous and due to positive family history of colon polyps and cancer (needs an adult colonoscope and addition of Dulcolax to colon prep for future colonoscopies). Relevant handouts were given and the discharge area.
[2024-01-31 09:25] VITALS: BP 93/53; PULSE 76; RESP 16; TEMP 36.5; O2SAT 96
[2024-01-31 09:40] VITALS: BP 102/61; PULSE 59; RESP 16; O2SAT 94
[2024-01-31 09:55] VITALS: BP 107/72; PULSE 55; RESP 16; TEMP 36.5; O2SAT 96
--- NOTE | 2024-01-31 10:12 | HO.POSTANES ---
Post Anesthesia Evaluation Post Anesthesia Evaluation Date of Service: 01/31/24 Vital Signs: Vital Signs Temp Pulse Resp BP Pulse Ox O2 Del Method 01/31/24 09:55 97.7 F 55 16 107/72 96 Room Air 01/31/24 09:40 59 16 102/61 94 Room Air 01/31/24 09:25 97.7 F 76 16 93/53 L 96 Room Air 01/31/24 07:53 96.4 F L 68 16 118/78 98 Room Air Anesthesia: Monitored Mental Status: Awake Pain Control: Satisfactory Nausea/Vomiting: None Hydration: Adequate Anesthesia-Related Issues: No Anes. Related Issues
== END 2024-01-31 10:27 | disposition home or self-care (01) ==
PROVIDERS: PCP Family Medicine; Visit Provider Internal Medicine Gastroenterology
PROC: 0DJD8ZZ Inspection of Lower Intestinal Tract, Via Natural or Artificial Opening Endoscopic (ICD-10-PCS; CPT 45378; principal; 2024-01-31 08:30)
DX: Z12.11 Encounter for screening for malignant neoplasm of colon (principal); Z83.719 Family history of colon polyps, unspecified; D12.2 Benign neoplasm of ascending colon; K63.5 Polyp of colon; K57.30 Diverticulosis of large intestine without perforation or abscess without bleeding; K64.8 Other hemorrhoids; R63.4 Abnormal weight loss; Z68.25 Body mass index [BMI] 25.0-25.9, adult; G89.29 Other chronic pain; M54.89 Other dorsalgia; F41.9 Anxiety disorder, unspecified; J30.2 Other seasonal allergic rhinitis; Z79.51 Long term (current) use of inhaled steroids
CPT/HCPCS: 45385; 45380; 88305; J2704

== ENCOUNTER → 2024-01-31 07:31 | Outpatient (BNV) | payer OTHER, SELFPAY | PROVIDERS: PCP Family Medicine; Visit Provider Internal Medicine Gastroenterology | DX: Z12.11 Encounter for screening for malignant neoplasm of colon (principal); K63.5 Polyp of colon; K57.90 Diverticulosis of intestine, part unspecified, without perforation or abscess without bleeding; K64.8 Other hemorrhoids; Z80.0 Family history of malignant neoplasm of digestive organs | CPT/HCPCS: 45380; 45385 ==

== ENCOUNTER 2024-04-14 15:35 | Outpatient (AMB) | payer OTHER, SELFPAY ==
[2024-04-14 15:36] VITALS: BP 112/78
--- NOTE | 2024-04-14 15:36 | A.OFFPC_ITS ---
Vital Signs 04/14/24 15:36 Weight 179 lb 8 oz BP 112/78 Blood Pressure Location Lt brachial Position Sitting Intake Visit Reasons: [facility] 04/11-04/12 Lower back pain Intake Note: Patient is here for follow up on lower back pain after bending down to pet his dog. Allergies seasonal Allergy (Mild, Uncoded 04/14/24 15:44) watery eyes, cough, stuffy, post-nasal drip Tobacco use date assessed: 04/14/24 Dental Screening Dental Screen Date: 04/14/24 Did you have a dental visit in the last 12 months?: Yes Did you have a dental problem in the last 6 months where you did not have access to dental care?: No Was dental information given to patient?: Patient has dentist HPI [facility] 04/11-04/12 Lower back pain HPI Details 48 y/o male presents to f/u [facility] le visit 04/11-04/12 for low back pain. CT scan showed some degenerative changes. No CT report today. 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 Hakeem Lerma, Juanita Clifford, Bill Foreman and colleagues, with an educational [place] from [employer]. Review of Systems Const Denies chills, Denies fatigue, Denies fever(s), Denies headache(s) and Denies weakness ENT Denies dizziness and Denies headache(s) Card Denies dyspnea Resp Denies cough, Denies dyspnea, Denies wheezing and Denies other (shortness of breath) Musc Reports back pain, Denies numbness and Denies tingling Neuro Denies dizziness, Denies headache(s), Denies numbness, Denies tingling and Denies weakness Psych Denies anxiety and Denies depression Endo Denies fatigue Aller/Immun Denies wheezing Physical exam (Primary Care) Vital Signs: Last Vital Signs BP 112/78 04/14/24 15:36 Tobacco/Smoking Status: Tobacco use Status Tobacco use date assessed 04/14/24 04/14/24 15:49 Patient Tobacco Use Status Never used Tobacco 04/14/24 15:49 e-Cigarette/Vaping Use Never Used 04/14/24 15:49 Thrive Assessment: Date of Thrive Assessment Date Thrive assessed 04/28/21 04/14/24 15:49 Const General: well developed; No acute distress Nutritional Appearance: well nourished Orientation/consciousness: patient oriented x3 [facility] Head: Yes normocephalic and Yes atraumatic Eyes General: appearance normal, both eyes and all related structures Pupils: Equal, round and reactive pupils present EOM: EOMs intact bilaterally Resp Effort & Inspection: normal respiratory effort Neuro General: patient oriented x3 and gait normal Cranial nerves: Yes Equal, round and reactive pupils present Psych Affect: normal affect Assessment and Plan Assessment & Plan (1) Back pain: Code(s): M54.9 - Dorsalgia, unspecified Plan: Likely?moderate?severe?muscle?strain?of?the?lower?back. Paperwork?from?ED?notes?that?CT?scan?showed?only?some?d egenerative?changes.??Likely?no?acute?changes.??I?do?not?have?the?CT?report?and? will?request?this. Will?extend?prescription?for?Flexeril. Will?give?him?a?prednisone?taper?and?also?meloxicam Encouraged?ice/heat?and?maintain?range?of?motion- he?can?begin?gentle?stretching?as?he?is?feeling?better Referred?for?physical?therapy If?not?improving?would?check?MRI?and?make?a?referral?to?Ortho Orders: Orders PT Evaluation and Treatment Today M54.50 - Low back pain, unspecified Medications: New prednisone 4 tabs daily for 4 days, 3 tabs daily for 2 days, 2 tabs daily for 2 days, 1 tab daily for 2 days PO daily; 10 days 28 tabs 0RF meloxicam 15 mg PO DAILY 30 days 30 tabs 2RF cyclobenzaprine 10 mg PO TID 7 days 21 tabs 0RF Coding Level of Care Code Est Pt Level 3 (77825) Diagnoses Back pain M54.9
== END 2024-04-14 16:25 | disposition home or self-care (01) ==
PROVIDERS: PCP Family Medicine; Visit Provider Family Medicine
DX: M54.9 Dorsalgia, unspecified (principal)
CPT/HCPCS: 99213

== ENCOUNTER 2024-04-20 09:45 | Outpatient (AMB) | payer OTHER, SELFPAY ==
--- NOTE | 2024-04-20 08:43 | MHC.PC.OV ---
Vital Signs 04/20/24 09:52 Height 5 ft 9 in Weight 181 lb BMI 26.7 BP 120/70 Blood Pressure Location Lt brachial Position Sitting Pulse 104 H Pulse Source Pulse Oximeter Pulse Oximetry (%) 96 Oxygen Delivery Method Room Air Intake Visit Reasons: f/u back pain Intake Note: Patient is here for back pain follow up. Allergies seasonal Allergy (Mild, Uncoded 04/20/24 09:53) watery eyes, cough, stuffy, post-nasal drip Tobacco use date assessed: 04/20/24 Dental Screening Dental Screen Date: 04/14/24 HPI f/u back pain HPI Details 48 y/o male presents to f/u low back pain/muscle strain and FMLA. Pt notes back pain has improved since last week but still reports ongoing pain. 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 Hakeem Lerma, Juanita Clifford, Bill Foreman and colleagues, with an educational [place] from [facility]. Review of Systems Const Denies chills, Denies fatigue, Denies fever(s), Denies headache(s) and Denies weakness ENT Denies dizziness and Denies headache(s) Card Denies dyspnea Resp Denies cough, Denies dyspnea, Denies wheezing and Denies other (shortness of breath) Musc Reports back pain, Denies numbness and Denies tingling Neuro Denies dizziness, Denies headache(s), Denies numbness, Denies tingling and Denies weakness Psych Denies anxiety and Denies depression Endo Denies fatigue Aller/Immun Denies wheezing Physical exam (Primary Care) Vital Signs: Last Vital Signs Pulse 104 H 04/20/24 09:52 BP 120/70 04/20/24 09:52 Pulse Ox 96 04/20/24 09:52 Oxygen Delivery Method Room Air 04/20/24 09:52 BMI result Body Mass Index 26.7 Tobacco/Smoking Status: Tobacco use Status Tobacco use date assessed 04/20/24 04/20/24 09:54 Patient Tobacco Use Status Never used Tobacco 04/20/24 08:43 e-Cigarette/Vaping Use Never Used 04/20/24 08:43 Thrive Assessment: Date of Thrive Assessment Date Thrive assessed 04/28/21 04/20/24 08:43 Const General: well developed; No acute distress Nutritional Appearance: well nourished Orientation/consciousness: patient oriented x3 [facility] Head: Yes normocephalic and Yes atraumatic Eyes General: appearance normal, both eyes and all related structures Pupils: Equal, round and reactive pupils present EOM: EOMs intact bilaterally Resp Effort & Inspection: normal respiratory effort Neuro General: patient oriented x3 and gait normal Cranial nerves: Yes Equal, round and reactive pupils present Psych Affect: normal affect Assessment and Plan Assessment & Plan (1) Low back pain: Code(s): M54.50 - Low back pain, unspecified Plan: 48-year-old?male?with?ongoing?low?back?pain?and?strain?in?lumbar?region?and?also?strain?at?left?scapular?region?presents?for?follow-up. He?has?had?mild?improvement?but?is?still?having?difficulty?while?standing?and?initially?walking.??This?loosens?up?a?bit?as?he?continues?to?walk Has?not?been?able?to?start?physical?therapy?yet?and?I?will?ask?the?office?to?get?him?scheduled?as?soon?as?possible Will?continue?meloxicam?and?I?will?extend?cyclobenzaprine Will?fill?out?FMLA?paperwork.??Initial?injury?was?on?04/11/2024. He?will?still?need?at?least?2?more?weeks?out?of?work?as?he?does?not?have?opportunities?for?light?duty. Will?keep?him?out?through?May??and?he?may?return?on?May?3rd?without?restrictions. However,?I?will?try?to?see?him?back?around?April??to?ensure?that?he?is?ready?to?return?to?work. (2) Left subscapular pain: Code(s): M25.512 - Pain in left shoulder Coding Level of Care Code Est Pt Level 3 (75130) Diagnoses Low back pain M54.50 Left subscapular pain M25.512
[2024-04-20 09:52] VITALS: BP 120/70; PULSE 104; O2SAT 96; BMI 26.7
== END 2024-04-20 10:35 | disposition home or self-care (01) ==
PROVIDERS: PCP Family Medicine; Visit Provider Family Medicine
DX: M54.50 Low back pain, unspecified (principal); M25.512 Pain in left shoulder
CPT/HCPCS: 99213

== ENCOUNTER 2024-05-04 10:25 | Outpatient (AMB) | payer OTHER, SELFPAY ==
--- NOTE | 2024-05-04 10:36 | AM.OFFVISMDC ---
Intake Vital Signs 05/04/24 10:37 Height 5 ft 9 in Intake Visit Reasons: fu back pain Allergies seasonal Allergy (Mild, Uncoded 04/20/24 09:53) watery eyes, cough, stuffy, post-nasal drip PFSH Medical History Allergies Acute bacterial tonsillitis Surgical History History of tonsillectomy [place] teeth removed Family History Father Heart attack Mother Afib Prediabetes Sister Hypertension Social History Housing: House Alcohol intake: current Alcohol intake frequency: a few times a week Alcohol type: beer Patient Tobacco Use Status: Never used Tobacco e-Cigarette/Vaping Use: Never Used Second Hand Smoke Exposure: Yes service: No Current occupational status: employed 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
[2024-05-04 10:37] VITALS: BP 120/60; PULSE 87; O2SAT 99; BMI 26.7
--- NOTE | 2024-05-04 10:44 | MHC.PC.OV ---
Vital Signs 05/04/24 10:37 Height 5 ft 9 in Weight 181 lb BMI 26.7 BP 120/60 Blood Pressure Location Lt brachial Position Sitting Pulse 87 Pulse Source Pulse Oximeter Pulse Oximetry (%) 99 Oxygen Delivery Method Room Air Intake Visit Reasons: fu back pain Intake Note: Patient is here to follow up on his back pain. Allergies seasonal Allergy (Mild, Uncoded 05/04/24 10:42) watery eyes, cough, stuffy, post-nasal drip Tobacco use date assessed: 04/20/24 Dental Screening Dental Screen Date: 04/14/24 HPI fu back pain HPI Details 48 y/o male presents to f/u back pain and to ensure he is on track to return to work on May 10. Had filled out FMLA paperwork last office visit. He has had mild improvement but was still having difficulty while standing and initially walking. This loosens up a bit as he continues to walk. Pt notes back pain continues to improve. HPI Comments History of Present Illness Details Documentation assistance for Golden Anne MD, was provided by Barrie Castanon, Cipher Expert on 05/04/2024 at 11:21 AM EST. I, Dr. Anne, have read, observed, and verified documentation. 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 Hakeem Lerma, Juanita Clifford, Bill Foreman and colleagues, with an educational [place] from [employer]. Review of Systems Const Denies chills, Denies fatigue, Denies fever(s), Denies headache(s) and Denies weakness ENT Denies dizziness and Denies headache(s) Card Denies dyspnea Resp Denies cough, Denies dyspnea, Denies wheezing and Denies other (shortness of breath) Musc Denies numbness and Denies tingling Neuro Denies dizziness, Denies headache(s), Denies numbness, Denies tingling and Denies weakness Psych Denies anxiety and Denies depression Endo Denies fatigue Aller/Immun Denies wheezing Physical exam (Primary Care) Vital Signs: Last Vital Signs Pulse 87 05/04/24 10:37 BP 120/60 05/04/24 10:37 Pulse Ox 99 05/04/24 10:37 Oxygen Delivery Method Room Air 05/04/24 10:37 BMI result Body Mass Index 26.7 Tobacco/Smoking Status: Tobacco use Status Tobacco use date assessed 04/20/24 05/04/24 10:48 Patient Tobacco Use Status Never used Tobacco 05/04/24 10:48 e-Cigarette/Vaping Use Never Used 05/04/24 10:48 Thrive Assessment: Date of Thrive Assessment Date Thrive assessed 04/28/21 05/04/24 10:48 Const General: well developed; No acute distress Nutritional Appearance: well nourished Orientation/consciousness: patient oriented x3 [facility] Head: Yes normocephalic and Yes atraumatic Eyes General: appearance normal, both eyes and all related structures Pupils: Equal, round and reactive pupils present EOM: EOMs intact bilaterally Resp Effort & Inspection: normal respiratory effort Neuro General: patient oriented x3 and gait normal Cranial nerves: Yes Equal, round and reactive pupils present Psych Affect: normal affect Assessment and Plan Assessment & Plan (1) Low back pain: Code(s): M54.50 - Low back pain, unspecified Plan: Significant?improvement?of?low?back?pain/strain He?is?on?target?to?return?to?work?on?05/10/2024 Filled?out?paperwork?for?short-term?disability Continue?physical?therapy (2) Left subscapular pain: Code(s): M25.512 - Pain in left shoulder Plan: Improving Continue?physical?therapy He?is?on?track?to?return?to?work?on?05/10/2024 Coding Level of Care Code Est Pt Level 3 (99826) Diagnoses Low back pain M54.50 Left subscapular pain M25.512
== END 2024-05-04 11:52 | disposition home or self-care (01) ==
PROVIDERS: PCP Family Medicine; Visit Provider Family Medicine
DX: M54.50 Low back pain, unspecified (principal); M25.512 Pain in left shoulder
CPT/HCPCS: 99213